=== PATIENT | male | born 1945 | race Caucasian/White ===

== ENCOUNTER 2019-08-10 13:23 | Observation (INO) ==
[2019-08-10 14:56] LABS: Urine Appearance Clear (CLEAR); Urine Bilirubin Negative (NEGATIVE); Urine Blood 25 /ul (NEGATIVE); Urine Color Yellow; Urine Ketone Negative (NEGATIVE); Urine Nitrite Negative (NEGATIVE); Urine Protein 30 mg/dL (NEGATIVE); Urine Specific Gravity 1.025 SP.GR. (1.005-1.030); Urine Urobilinogen Normal (NORMAL)
[2019-08-10 14:57] LABS: Urine WBC 0-5 /hpf (0-5)
[2019-08-10 14:58] LABS: Urine Bacteria None Seen; Urine RBC 0-5 /hpf (0-5)
[2019-08-10 15:05] LABS: Urine Hyaline Cast 0-5 /LPF
[2019-08-10] MEDS ORDERED: NORMAL SALINE 1,000 ML IV ONE (15:22)
--- NOTE | 2019-08-10 15:24 | ERNOTE ---
Back Pain ER HPI Date of Service: 08/10/19 Time Seen by Provider: 08/10/19 14:33 Source: patient, family Exam Limitations: no limitations Immunizations: IMMUNIZATION HX Immunizations Up to Date Yes History of Influenza Vaccine Yes Hx Pneumococcal Vaccination Yes Allergies/Adverse Reactions: Allergies codeine Adverse Reaction (Severe, Verified 08/10/19 14:24) dizziness almost passed out after having it Home Medications: HOME MEDICATIONS Aspirin [Aspirin Chewable] 81 mg PO DAILY 05/25/14 [Last Taken 08/10/19 n] mometasone 0.1 % topical solution 1 applic TP DAILY PRN 07/17/18 [Last Taken Unknown] lisinopril 40 mg tablet 40 mg PO DAILY #90 tab 07/12/19 [Last Taken 08/10/19 0900] Narrative: This patient is a 74-year-old male who is here with back pain. He has had back pain since April. He saw Dr. Zepeda about June 25. He had an x-ray and was sent to physical therapy. He has been to physical therapy without relief. He had seen somebody before that who gave him a muscle relaxer. That did not help. He was told to take Tylenol and ibuprofen. He has been taking 200 mg of ibuprofen and one extended reliefs 650 mg Tylenol tablet daily. He has not taken anything for about 3 days because it did not work. He has pain all the way across his low back. He has some pain down to the left calf. He has been constipated. He gets occasional dysuria. He has an appointment to see Dr. Zepeda on Monday, 4 days from now. Review of Systems - Review of Systems Constitutional: Present: weight loss. Absent: fever EYE: Present: no symptoms reported ENT: Absent: ear pain, nose congestion, nasal drainage, sore throat Respiratory: Absent: shortness of breath, cough Cardiology: Present: chest pain - He gets chest pain with a deep breath.. Absent: syncope Gastrointestinal/Abdominal: Present: constipation, eating less, drinking less. Absent: nausea, vomiting, diarrhea, abdominal pain Genitourinary: Present: dysuria. Absent: frequency, hematuria Musculoskeletal: Present: back pain Skin: Absent: rash Neurological: Absent: headache, dizziness/light-headedness, numbness, tingling Endocrine: Present: no symptoms reported Hematologic/Lymphatic: Present: other - No active bleeding Psych: Present: no symptoms reported Medical History (Last Reviewed 08/10/19 @ 15:15 by Maksim Meeks MD) Erectile dysfunction Onset Date: Unknown Glaucoma Onset Date: Unknown Hypertension Onset Date: Unknown Impaired fasting glucose Onset Date: Unknown Skin cancer Onset Date: ~01/2014 Right chest lesion per [facility] dermatology Surgical History: Surgical History (Last Reviewed 08/10/19 @ 15:15 by Maksim Meeks MD) H/O colonoscopy Onset Date: 08/08/18 [place] 04/09/10-tubular adenoma, sigmoid diverticulosis. 08/08/18 sigmoid diverticulosis. Recheck 10 yrs. History of basal cell carcinoma (BCC) excision Onset Date: Unknown right side rib, scalp History of eye surgery Onset Date: Unknown Right lens implant Family History: Family History (Last Reviewed 08/10/19 @ 15:15 by Maksim Meeks MD) Father , age 70's-pneumonia Diabetes Mother , age 93-old age Arthritis Brother , age 81-lung ca No problems noted. Social History: (Last Reviewed 08/10/19 @ 15:15 by Maksim Meeks MD) Social History: adopted: No Marital status: lives independently: Yes household members: spouse number of children: 2 current occupational status: retired Highest education level completed: high school graduate Service: Yes branch: [employer] Tobacco: Smoking Status: Former smoker Alcohol: alcohol intake: current Alcohol type: beer alcohol intake frequency: holiday/special occasion Substance Use: substance use type: does not use Dietary Habits: caffeine: Yes Personal Safety: victim of physical abuse: No victim of emotional abuse: No Physical Exam - Physical Exam General Appearance: Present: wd/wn, alert, no apparent distress Head Exam: Present: normal inspection, no evidence of injury Eye Exam: Normal inspection: bilateral Ears, Nose, Throat: Present: normal ENT inspection, normal pharynx Neck: Present: normal inspection, nontender. Absent: lymphadenopathy (R), lymphadenopathy (L) Respiratory: Present: no respiratory distress, normal breath sounds, lungs clear Cardiovascular/Chest: Present: regular rate, rhythm, no murmur Gastrointestinal/Abdominal: Present: normal bowel sounds, nondistended, soft, no organomegaly, tenderness - Bilateral lateral abdomen. Back Exam: Present: normal inspection, no vertebral tenderness, decreased range of motion. Absent: muscle spasm Extremity Exam: Present: normal inspection, non-tender, normal range of motion, pedal edema Neurological Exam: Present: alert, oriented, normal mood/affect, no motor/sensory deficits, other - Straight leg raising is negative. DTR: N=norm/NB=norm/brisk/A=abs/DD=dull/dimin/HC=hyperactive: Knee (R): Normal, Knee (L): Normal Skin Exam: Present: normal color, warm/dry Progress - Date and Time Seen: Date and Time: 08/10/19 15:23 The screen for appropriate CT usage criteria indicates I should get a CT scan of the abdomen and pelvis with and without contrast. 08/10/19 17:23 The blood work shows elevation of his BUN and creatinine. His calcium is significantly elevated. He had normal labs and x-ray in June. I spoke with Dr. Benitez who agrees to keep the patient for hydration and observation. 08/11/19 07:55 The emergency department was full and patients were waiting to be seen. Because of the length of time it takes to get a CT scan with contrast and the lab abnormalities that required admission, it seemed prudent to try to get the patient to an inpatient room sooner than later, for his comfort and the safety of patients needing seen. The CT scan was done for the hematuria. The next step for his back pain would likely be an MRI. Unfortunately for the patient, the CT scan showed a large lytic lesion of T10 with compression fracture and extensive diffuse lytic lesions throughout the skeletal structures. - Results and Orders Patient's Lab Results:: I have reviewed the patient's lab results. Results and Orders: Laboratory Tests 08/10/19 14:35 Urine Color Yellow Urine Appearance Clear Urine pH 6.0 Ur Specific [place] 1.025 Urine Protein 30 H Urine Glucose (UA) Negative Urine Ketones Negative Urine Blood 25 H Urine Nitrate Negative Urine Bilirubin Negative Prot Sulfosalicylic Acd 1+ Urine Urobilinogen Normal Ur Leukocyte Esterase Negative Urine RBC 0-5 Urine WBC 0-5 Ur Epithelial Cells 0-5 Urine Bacteria None seen Hyaline Casts 0-5 H Urine Culture Comments No culture indicated Laboratory Tests 08/10/19 08/10/19 15:30 15:30 WBC 7.1 RBC 3.68 L Hgb 11.6 L Hct 34.8 L MCV 94.6 MCH 31.5 H MCHC 33.3 RDW 12.8 Plt Count 263 MPV 9.3 Immature Gran % (Auto) 0.30 Neutrophils % 74.1 Lymphocytes % 15.4 L Monocytes % 9.8 H Eosinophils % 0.1 Basophils % 0.3 Nucleated RBC % 0.0 Plasma Sodium 143 H Potassium 3.8 Chloride 103 Carbon Dioxide 31.4 Anion Gap 12.4 BUN 42 H D Creatinine 2.56 H D Est GFR (Non-Af Amer) 26 L D BUN/Creatinine Ratio 16.4 Random Glucose 128 H Calcium 16.9 H D Calcium Adj for Albumin 16.7 H* D Total Bilirubin 0.9 AST 12 ALT 19 Alkaline Phosphatase 101 Total Protein 7.9 Albumin 3.8 - Vital Signs Patient's Vital Signs:: I have reviewed the patient's vital signs. Vital Signs: Vital Signs 08/10/19 14:19 Temperature 37.0 C Pulse Rate 79 Respiratory Rate 20 Blood Pressure 147/66 O2 Sat by Pulse Oximetry 99 - Progress/Reassessment Chief Complaint: Back Pain Departure Clinical Impression: Sciatica, Hematuria, Acute kidney injury, Hypercalcemia, Osteolytic lesion, Compression fracture of T10 vertebra - Departure Disposition: Still a patient Condition: Stable
[2019-08-10 15:35] LABS: Hematocrit 34.8 % (42.0-52.0); Hemoglobin 11.6 gm/dL (13.5-18.0); Mean Cell Volume 94.6 fl (78-100); Mean Corpuscular Hemoglobin 31.5 pg (27-31); Mean Corpuscular Hgb Conc 33.3 g/dl (32-36); Mean Platelet Volume 9.3 fl (8-11.3); Neutrophil # 5.3 K/mm3 (1.3-6.0); Neutrophil % 74.1 % (42-75.0); Platelet Count 263 K/mm3 (150-450); Red Blood Count 3.68 M/mm3 (4.7-6.0); Red Cell Distribution Width 12.8 % (11.5-14.0); White Blood Count 7.1 K/mm3 (4.0-10.5)
[2019-08-10 15:48] LABS: Albumin * 3.8 gm/dl (3.4-5.0); Anion Gap 12.4 mmol/L (6.8-13.8); BUN/Creatinine Ratio 16.4 (9.0-21.6); Bilirubin, Total 0.9 mg/dL (0.0-1.1); Carbon Dioxide 31.4 mmol/L (24-32.6); Potassium 3.8 mmol/L (3.4-4.6); Total Protein 7.9 gm/dL (6.2-8.2)
[2019-08-10] MEDS ORDERED: DIATRIZOATE MEGLUMINE, SODIUM 30 ML BTL PO ONE (15:50)
[2019-08-10 15:51] LABS: Ca. Corrected For Albumin 16.7 mg/dL (8.4-10.2)
[2019-08-10 15:52] LABS: Calcium * 16.9 mg/dL (7.9-10.9)
[2019-08-10] MEDS: NORMAL SALINE 1,000 ML IV PRN (17:20)
[2019-08-10] MEDS ORDERED: MORPHINE SULFATE 4 MG/ML SYRG IV PRN (17:30)
[2019-08-10] MEDS ORDERED: ONDANSETRON HCL/PF 2 MG/ML VIAL IV ONE (17:30)
[2019-08-10] MEDS ORDERED: Mometasone Furoate TP PRN (18:42)
[2019-08-10] MEDS ORDERED: CALCITONIN SALMON SYNTHETIC IM SCH (18:45)
[2019-08-10] MEDS ORDERED: IBUPROFEN 600 MG TABLET PO PRN (18:51)
[2019-08-10] MEDS ORDERED: ONDANSETRON HCL/PF 2 MG/ML VIAL ONE (18:58)
[2019-08-11] MEDS: NORMAL SALINE 1,000 ML IV PRN ×4 (01:01→20:38)
[2019-08-11 07:42] LABS: Anion Gap 10.2 mmol/L (6.8-13.8); BUN/Creatinine Ratio 15.9 (9.0-21.6); Carbon Dioxide 29.8 mmol/L (24-32.6)
[2019-08-11 07:50] LABS: Calcium * 14.6 mg/dL (7.9-10.9)
[2019-08-11] MEDS: ACETAMINOPHEN 500 MG TABLET PO PRN ×3 (08:22→20:38)
[2019-08-11] MEDS ORDERED: LISINOPRIL 40 MG TABLET PO SCH (09:00)
[2019-08-11] MEDS ORDERED: ASPIRIN 81 MG TAB.CHEW PO SCH (09:00)
--- NOTE | 2019-08-11 10:39 | HP ---
Chief Complaint - Chief Complaint Date of Service: 08/11/19 Time of Service: 10:24 Chief Complaint: Back pain, acute kidney injury, hypercalcemia History of Present Illness: 74-year-old male presented to the ER yesterday evening with worsening back pain started roughly 6 weeks ago. Previously had seen his PCP for initial work-up which he obtained x-rays and labs all of which appear to be normal. He was referred to physical therapy which he completed and not get no benefit from. Last night his back pain got severe to the point where he could barely function or move, went to the ER. He was found to have an elevated calcium at 16.9 corrected to 16.7 with albumin. He was also found to have a fairly large kidney injury where his GFR at baseline is close to 70, this was down to 26 ( normal 6 weeks earlier). His creatinine at baseline is close to 1.1 and his was up to 2.56 (again normal 5 weeks earlier). ER doctor also concerned with some possible blood in his urine and ordered a CT scan which came back positive for lytic lesions throughout his axial spine consistent with multiple myeloma. At this time he had already been transferred to the floor prior to results returning. His vital signs are stable and he is afebrile. Patient has shown signs of hypercalcemia over the last month including anorexia and weight loss. He has had muscle and bone pain. No neurological symptoms. Medical History (Last Reviewed 08/10/19 @ 19:09 by Ammy Hernandez RN) Erectile dysfunction Onset Date: Unknown Glaucoma Onset Date: Unknown Hypertension Onset Date: Unknown Impaired fasting glucose Onset Date: Unknown Skin cancer Onset Date: ~01/2014 Right chest lesion per [facility] dermatology Surgical History: Surgical History (Last Reviewed 08/10/19 @ 19:09 by Ammy Hernandez RN) H/O colonoscopy Onset Date: 08/08/18 [place] 04/09/10-tubular adenoma, sigmoid diverticulosis. 08/08/18 sigmoid diverticulosis. Recheck 10 yrs. History of basal cell carcinoma (BCC) excision Onset Date: Unknown right side rib, scalp History of eye surgery Onset Date: Unknown Right lens implant Family History: Family History (Last Reviewed 08/10/19 @ 19:09 by Ammy Hernandez RN) Father , age 70's-pneumonia Diabetes Mother , age 93-old age Arthritis Brother , age 81-lung ca No problems noted. Social History: (Last Reviewed 08/10/19 @ 19:09 by Ammy Hernandez RN) Social History: adopted: No Marital status: lives independently: Yes household members: spouse number of children: 2 current occupational status: retired Highest education level completed: high school graduate Service: Yes branch: [employer] Tobacco: Smoking Status: Former smoker Alcohol: alcohol intake: current Alcohol type: beer alcohol intake frequency: holiday/special occasion Substance Use: substance use type: does not use Dietary Habits: caffeine: Yes Personal Safety: victim of physical abuse: No victim of emotional abuse: No Review Of Systems (GEN) - Review of Systems Generalized/Overall Review: Present: Weight loss. Absent: Chills, Fever EENTM: Present: No Symptoms Reported Respiratory: Present: No Symptoms Reported Cardiac: Absent: Chest Pain, Palpitations Abdominal: Present: Nausea. Absent: Vomiting Genitourinary: Absent: Itching, Urgency, Frequency, Hematuria Musculoskeletal: Present: Back Pain - severe Neurological: Present: No Symptoms Reported Skin: Present: No Symptoms Reported Immunizations: IMMUNIZATION HX Immunizations Up to Date Yes History of Influenza Vaccine Yes Hx Pneumococcal Vaccination Yes Allergies/Adverse Reactions: Allergies Allergy/AdvReac Type Severity Reaction Status Date / Time codeine AdvReac Severe dizziness Verified 08/10/19 14:24 Home Medications: HOME MEDICATIONS Aspirin [Aspirin Chewable] 81 mg PO DAILY 05/25/14 [Last Taken 08/10/19 n] mometasone 0.1 % topical solution 1 applic TP DAILY PRN 07/17/18 [Last Taken Unknown] lisinopril 40 mg tablet 40 mg PO DAILY #90 tab 07/12/19 [Last Taken 08/10/19 0900] Exam - Exam Vital Signs: Vital Signs - Last Taken Temp 36.6 C 08/11/19 08:06 Pulse 65 08/11/19 08:06 Resp 20 08/11/19 08:06 BP 107/44 08/11/19 08:06 Pulse Ox 95 08/11/19 08:06 Constitutional: Present: Alert, Oriented x3, Acute distress - back pain, Moderate distress ENT Exam: Present: hearing grossly normal. Absent: nasal congestion, nasal drainage Eye Exam: bilateral eye: normal inspection, EOMI Neck: Present: stiff neck Back Exam: Present: vertebral tenderness - throughout thoracic and lumbar spine Respiratory: Present: lungs clear, no respiratory distress Cardiovascular/Chest: Present: regular rate, rhythm, no edema. Absent: bradycardia Abdomen: Present: soft, nontender, nondistended /Rectal: Present: Exam deferred Skin Exam: Present: normal color, warm/dry Neurologic: Present: no motor/sensory deficits, depressed affect - mild Appearance: Present: appropriate appearance, appropriate insight Eye contact: Present: cooperative, good eye contact Thoughts: Present: normal thought pattern, normal mood /affect Diagnostic Studies: Abnormal Lab Results 08/10/19 08/10/19 08/10/19 Range/Units 14:35 15:30 15:30 RBC 3.68 L (4.7-6.0) M/mm3 Hgb 11.6 L (13.5-18.0) gm/dL Hct 34.8 L (42.0-52.0) % MCH 31.5 H (27-31) pg Lymphocytes % 15.4 L (20-51) % Monocytes % 9.8 H (0.0-9) % Lymphocytes # 1.10 L (1.5-3.5) k/mm3 Sodium 143 H (132-142) mmol/L Plasma Sodium 143 H (130-142) mmol/L Chloride (97-106) mmol/L BUN 42 H D (6-23) mg/dL Creatinine 2.56 H D (0.4-1.4) mg/dL Est GFR (Non-Af Amer) 26 L D (60-130) mL/min Random Glucose 128 H (70-110) mg/dL Calcium 16.9 H D (7.9-10.9) mg/dL Calcium Adj for Albumin 16.7 H* D (8.4-10.2) mg/dL Urine Protein 30 H (NEGATIVE) mg/dL Urine Blood 25 H (NEGATIVE) /ul Hyaline Casts 0-5 H (NONE) /LPF 08/11/19 Range/Units 07:16 RBC (4.7-6.0) M/mm3 Hgb (13.5-18.0) gm/dL Hct (42.0-52.0) % MCH (27-31) pg Lymphocytes % (20-51) % Monocytes % (0.0-9) % Lymphocytes # (1.5-3.5) k/mm3 Sodium 145 H (132-142) mmol/L Plasma Sodium 145 H (130-142) mmol/L Chloride 109 H (97-106) mmol/L BUN 44 H (6-23) mg/dL Creatinine 2.76 H (0.4-1.4) mg/dL Est GFR (Non-Af Amer) 24 L (60-130) mL/min Random Glucose 111 H (70-110) mg/dL Calcium 14.6 H D (7.9-10.9) mg/dL Calcium Adj for Albumin (8.4-10.2) mg/dL Urine Protein (NEGATIVE) mg/dL Urine Blood (NEGATIVE) /ul Hyaline Casts (NONE) /LPF Laboratory Results WBC 7.1 K/mm3 (4.0-10.5) 08/10/19 15:30 RBC 3.68 M/mm3 (4.7-6.0) L 08/10/19 15:30 Hgb 11.6 gm/dL (13.5-18.0) L 08/10/19 15:30 Hct 34.8 % (42.0-52.0) L 08/10/19 15:30 MCV 94.6 fl (78-100) 08/10/19 15:30 MCH 31.5 pg (27-31) H 08/10/19 15:30 MCHC 33.3 g/dl (32-36) 08/10/19 15:30 RDW 12.8 % (11.5-14.0) 08/10/19 15:30 Plt Count 263 K/mm3 (150-450) 08/10/19 15:30 MPV 9.3 fl (8-11.3) 08/10/19 15:30 Immature Gran % (Auto) 0.30 % (0.001-0.429) 08/10/19 15:30 Immature Gran # (Auto) 0.02 K/mm3 (0.000-0.0310) 08/10/19 15:30 Neutrophils % 74.1 % (42-75.0) 08/10/19 15:30 Lymphocytes % 15.4 % (20-51) L 08/10/19 15:30 Monocytes % 9.8 % (0.0-9) H 08/10/19 15:30 Eosinophils % 0.1 % (0.0-3.0) 08/10/19 15:30 Basophils % 0.3 % (0.0-1.0) 08/10/19 15:30 Nucleated RBC % 0.0 k/mm3 (0-1) 08/10/19 15:30 Neutrophils # 5.3 K/mm3 (1.3-6.0) 08/10/19 15:30 Lymphocytes # 1.10 k/mm3 (1.5-3.5) L 08/10/19 15:30 Monocytes # 0.7 k/mm3 (0.0-1.0) 08/10/19 15:30 Eosinophils # 0.0 k/mm3 (0.0-0.7) 08/10/19 15:30 Absolute Basophils 0.0 k/mm3 (0.0-0.1) 08/10/19 15:30 Sodium 145 mmol/L (132-142) H 08/11/19 07:16 Plasma Sodium 145 mmol/L (130-142) H 08/11/19 07:16 Potassium 4.0 mmol/L (3.4-4.6) 08/11/19 07:16 Chloride 109 mmol/L (97-106) H 08/11/19 07:16 Carbon Dioxide 29.8 mmol/L (24-32.6) 08/11/19 07:16 Anion Gap 10.2 mmol/L (6.8-13.8) 08/11/19 07:16 BUN 44 mg/dL (6-23) H 08/11/19 07:16 Creatinine 2.76 mg/dL (0.4-1.4) H 08/11/19 07:16 Est GFR (Non-Af Amer) 24 mL/min (60-130) L 08/11/19 07:16 BUN/Creatinine Ratio 15.9 (9.0-21.6) 08/11/19 07:16 Random Glucose 111 mg/dL (70-110) H 08/11/19 07:16 Calcium 14.6 mg/dL (7.9-10.9) H D 08/11/19 07:16 Calcium Adj for Albumin 16.7 mg/dL (8.4-10.2) H* D 08/10/19 15:30 Total Bilirubin 0.9 mg/dL (0.0-1.1) 08/10/19 15:30 AST 12 U/L (0-48) 08/10/19 15:30 ALT 19 U/L (19-67) 08/10/19 15:30 Alkaline Phosphatase 101 U/L (50-170) 08/10/19 15:30 Total Protein 7.9 gm/dL (6.2-8.2) 08/10/19 15:30 Albumin 3.8 gm/dl (3.4-5.0) 08/10/19 15:30 Urine Color Yellow 08/10/19 14:35 Urine Appearance Clear (CLEAR) 08/10/19 14:35 Urine pH 6.0 pH (5.0-7.0) 08/10/19 14:35 Ur Specific [place] 1.025 SP.GR. (1.005-1.030) 08/10/19 14:35 Urine Protein 30 mg/dL (NEGATIVE) H 08/10/19 14:35 Urine Glucose (UA) Negative mg/dL (NEGATIVE) 08/10/19 14:35 Urine Ketones Negative mg/dL (NEGATIVE) 08/10/19 14:35 Urine Blood 25 /ul (NEGATIVE) H 08/10/19 14:35 Urine Nitrate Negative (NEGATIVE) 08/10/19 14:35 Urine Bilirubin Negative mg/dl (NEGATIVE) 08/10/19 14:35 Prot Sulfosalicylic Acd 1+ mg/dL (0) 08/10/19 14:35 Urine Urobilinogen Normal EU/dl (NORMAL) 08/10/19 14:35 Ur Leukocyte Esterase Negative /ul (NEGATIVE) 08/10/19 14:35 Urine RBC 0-5 /hpf (0-5) 08/10/19 14:35 Urine WBC 0-5 /hpf (0-5) 08/10/19 14:35 Ur Epithelial Cells 0-5 /hpf (0-5) 08/10/19 14:35 Urine Bacteria None seen (NONE) 08/10/19 14:35 Hyaline Casts 0-5 /LPF (NONE) H 08/10/19 14:35 Urine Culture Comments No culture indicated 08/10/19 14:35 Assessment/Plan - Narrative Narrative: Plan is to transfer patient in the morning if possible to higher level of care facility for likely new diagnosis of multiple myeloma. If work-up for myeloma is negative then patient has lytic lesions from another source though he has no presenting symptoms to suggest where and this will need to be worked up by oncology. Patient and family in agreement with treatment plan. Nurse to call questions or concerns - Assessment/Plan (1) Multiple myeloma Assessment: Suspected due to clinical presentation. Hypercalcemia, back pain, lytic lesion seen on CT scan. Concern for kidney injury due to proteinuria. Recommend transfer to facility with nephrology available. GFR decreased overnight despite aggressive fluid resuscitation. Calcium improved from 16.7 down to 14.9. He was unable to get calcitonin last night as it was not available here in the meantime. Currently patient only wants [id number] analgesics for pain, did not want narcotics last night. Morphine has been ordered. Holding ibuprofen due to kidney function. Tylenol as needed Problem: Suspected (2) Acute kidney injury Assessment: See above, patient in need of nephrology. Problem: Acute (3) Hypercalcemia Assessment: Slightly improved overnight with aggressive fluid resuscitation, given calcitonin this morning. Will likely need to be started on Pamidronate or something along those lines. higher level of care facility can determine this. Problem: Acute (4) Osteolytic lesion Problem: Acute (5) Compression fracture of T10 vertebra Problem: Acute
[2019-08-11] MEDS ORDERED: CALCITONIN,SALMON,SYNTHETIC 30 SPRAY BTL NS SCH (12:45)
--- NOTE | 2019-08-11 20:31 | DS ---
Transfer Discharge Summary - Diagnosis(s)/Problems (1) Multiple myeloma Problem: Suspected (2) Acute kidney injury Problem: Acute (3) Hypercalcemia Problem: Acute (4) Osteolytic lesion Problem: Acute (5) Compression fracture of T10 vertebra Problem: Acute - Course Description of Stay: 74-year-old male with history of hypertension presented to the hospital with severe worsening back pain. Patient had significant kidney injury compared to previous baseline 6 weeks earlier. Calcium was also elevated at 16.[address] scan of his abdomen showed lytic lesions throughout his lumbar and thoracic spine, consistent with multiple myeloma, Suspected. Patient to be transferred to the [facility] due to worsening kidney function despite fluid resuscitation as patient will likely require nephrology. Patient received 1 dose of calcitonin today. Patient's pain fairly well controlled with nonnarcotics. Patient's vital signs have been stable, his cognition is at baseline. No neurological symptoms. Procedures Performed: none - Results and Findings Results and Findings: Laboratory Results - last 24 hr 08/11/19 07:16 Sodium 145 H Plasma Sodium 145 H Potassium 4.0 Chloride 109 H Carbon Dioxide 29.8 Anion Gap 10.2 BUN 44 H Creatinine 2.76 H Est GFR (Non-Af Amer) 24 L BUN/Creatinine Ratio 15.9 Random Glucose 111 H Calcium 14.6 H D - Medications Medications: Active Medications Acetaminophen (Tylenol) 1,000 mg PO Q6H PRN PRN Reason: Mild pain (pain scale 1-3) Stop: 09/09/19 22:50 Last Admin: 08/11/19 14:26 Dose: 1,000 mg Documented by: Aspirin (Aspirin Chewable) 81 mg PO DAILY [facility] Stop: 09/10/19 09:01 Last Admin: 08/11/19 08:22 Dose: 81 mg Documented by: Calcitonin [place] (Miacalcin Nasal [place]) 1 spray NS DAILY [facility] Stop: 09/10/19 12:46 Last Admin: 08/11/19 13:28 Dose: 1 spray Documented by: Sodium Chloride (Sodium Chloride 0.9%) 1,000 mls @ 150 mls/hr IV .Q6H40M PRN PRN Reason: HYDRATION Stop: 09/09/19 17:17 Last Admin: 08/11/19 13:35 Dose: 150 mls/hr Documented by: Discontinued Medications Diatrizoate Meglum/Diatrizoate Sod (Gastrografin Solution) 60 ml PO ONCE ONE Stop: 08/10/19 15:51 Last Admin: 08/10/19 15:56 Dose: 60 ml Documented by: Sodium Chloride (Sodium Chloride 0.9%) 1,000 mls @ 999 mls/hr IV .Q1H1M ONE Stop: 08/10/19 16:22 Last Infusion: 08/10/19 16:41 Dose: Infused Documented by: Ibuprofen (Motrin) 600 mg PO Q6H PRN PRN Reason: Moderate Pain (pain scale 4-6) Stop: 09/09/19 18:52 Last Admin: 08/10/19 18:57 Dose: 600 mg Documented by: Ondansetron HCl (Zofran) 4 mg IV ONCE ONE Stop: 08/10/19 17:31 Last Admin: 08/10/19 19:02 Dose: 4 mg Documented by: - Disposition Disposition: Short Term Hospital Inpatient Condition: Serious Discharge Date: 08/11/19 Discharge Time: 20:29
[2019-08-12 01:07] VITALS: BP 129/47
== END 2019-08-11 21:00 | disposition short-term general hospital (02) ==
LOC: MS 13:23 → ER 13:23 → MS 16:50 → INTOOBSV 17:59
PROVIDERS: ADMIT Family Medicine; ATTEND Internal Medicine
CPT/HCPCS: 36415; 74176; 80048; 80053; 81001; 83970; 85025; 96374; 99282; 99285; G0378; J2405